=== PATIENT | female | born 1950 | race Caucasian/White ===

== ENCOUNTER → 2016-10-12 | Day surgery (SDC) | payer OTHER ==
[~2016-10-12] VITALS: Ht 165.1 cm; Wt 89.8 kg
[~2016-10-12] MED LIST: GABAPENTIN600 M1 PO; LOPRESSOR50 M1 PO
--- NOTE | 2016-10-12 10:28 | Operative Report ---
Operative/Inv Procedure Report Surgery Date: 10/12/16 Name of Procedure: Exam under anesthesia Dilation of colorectal anastomotic stricture Pre-Operative Diagnosis: Critical stricture of colorectal anastomosis Post-Operative Diagnosis: Critical stricture of colorectal anastomosis Estimated Blood Loss: scant Surgeon/Sales Agent Protective Service: SARA KAT JR, DO Anesthesia: general endotracheal tube, block Monitors: Per routine Implants: None Specimens: None Complications: None Condition: Good Operative Indication: This is a 65-year-old female with history of synchronous colon and rectal cancers. She now appears to be disease free. He is a diverting ileostomy, she has a colorectal anastomosis but it is critically strictured. She presents for dilation of this stricture prior to takedown of her ileostomy Operative/Procedure Note Note: The patient presented to [facility] was taken to the operating room. While awake she was placed in the prone jackknife position on the operating stretcher. She could not get comfortable so we should decided to convert to general anesthesia. The patient was then placed on the stretcher adjacent to the operating room table. She underwent induction of general anesthesia placement of endotracheal tube. She was converted to the prone jackknife position and sure to protect her airway spine and bony prominences. The gluteal cleft was taped in the abducted position. The perineum was prepped and draped in usual fashion. An anal block was performed using 0.5% Marcaine with epinephrine and a total of 30 mL was injected. I gently dilated the anal canal to one finger breath than 2 finger breaths. A Fansler operating proctoscope was placed into the anal canal. The anastomosis was at about 9-10 cm in the anal verge and stricture to about 1 mm diameter. I gently dilated the stricture by using Hegar dilators. We started with the smallest Hegar dilator and progressed up to the largest dilator which was an 18. Dilation was without difficulty and the stricture appeared to be just the membrane. Once dilation was completed I could see the colon mucosa above the anastomosis which appeared very healthy. At this point the procedure was concluded. Patient was converted back to the supine position X been operating room and taken recovery area in good condition at the end of the procedure all needle sponges and attachments were accounted for. Findings: Successful dilation of colorectal anastomosis stricture Discharge Disposition: PACU CC: DAGO SNELL,REYNALDO
== END ==
LOC: STS 01:12
DX: K91.89 Other postprocedural complications and disorders of digestive system (principal); Z85.09 Personal history of malignant neoplasm of other digestive organs; Z93.2 Ileostomy status; I10 Essential (primary) hypertension
CPT/HCPCS: J0690; J2250